=== PATIENT | female | born 1985 | race Caucasian/White ===

== ENCOUNTER 2019-02-26 12:31 | Emergency (ER) | payer OTHER ==
--- NOTE | 2019-02-26 15:10 | ED ---
Psychiatric Complaint - History Of Current Complaint Chief Complaint: EDPsychosocial Time Seen by Provider: 02/26/19 14:44 - Allergies/Home Medications Allergies/Adverse Reactions: Allergies Allergy/AdvReac Type Severity Reaction Status Date / Time codeine Allergy Hives Verified 02/26/19 12:46 PMH/Surg Hx/FS Hx/Imm Hx Infectious Disease History: No Infectious Disease History: Denies: Traveled Outside the [place] in Last 30 Days Review of Systems Negative: Fever Positive: Anxious. Negative: Other - SI/HI All Other Systems Reviewed And Are Negative: Yes Physical Exam Triage Information Reviewed: Yes Vital Signs On Initial Exam: Initial Vitals Temp Pulse Resp BP Pulse Ox 98.2 F 110 16 145/96 96 02/26/19 12:34 02/26/19 12:34 02/26/19 12:34 02/26/19 12:34 02/26/19 12:34 Vital Signs Reviewed: Yes Diagnostics - Vital Signs Vital Signs Temp Pulse Resp BP Pulse Ox 02/26/19 14:01 98.0 F 96 17 117/82 96 02/26/19 12:34 98.2 F 110 16 145/96 96 - Laboratory Lab Statement: Any lab studies that have been ordered have been reviewed, and results considered in the medical decision making process. Discharge - Discharge Plan Referrals: No Primary Care Phys,NOPCP [Primary Care Provider] - - Attestation Statements Document Initiated by Scribe: Yes Documenting Scribe: Herminia Rose Provider For Whom Scribe is Documenting (Include Credential): Jv Ni MD Scribe Attestation: Herminia Davidson, scribed for Jv Ni MD on 02/26/19 at 1509.
[2019-02-26] MEDS ORDERED: LORazepam INJ* 2 MG/ML 1 ML VIAL IM ONE (15:11)
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
[2019-02-26 15:50] VITALS: BP 112/81
== END 2019-02-26 15:50 | disposition home or self-care (01) ==
LOC: ED 12:31
DX: F43.22 Adjustment disorder with anxiety (principal)
CPT/HCPCS: 96372; 99282; J2060

== ENCOUNTER 2019-02-28 12:50 | Emergency (ER) | payer OTHER ==
--- NOTE | 2019-02-28 13:09 | UC ---
Psychiatric Complaint HPI - History Of Current Complaint Stated Complaint: ANXIETY Time Seen by Provider: 02/28/19 13:01 - Allergies/Home Medications Allergies/Adverse Reactions: Allergies Allergy/AdvReac Type Severity Reaction Status Date / Time codeine Allergy Hives Verified 02/28/19 13:08 PMH/Surg Hx/FS Hx/Imm Hx - Social History Alcohol Use: None Substance Use Type: Other Substance Use Comment - Amount & Last Used: Suboxone and Ativan Smoking Status (MU): Unknown if Ever Smoked Psych Complaint Course/Dx - Course Course Of Treatment: Reference #: [id number] - Differential Dx/Diagnosis Differential Diagnosis/HQI/PQRI: Anxiety, Depression, Suicidal Ideation Discharge - Sign-Out/Discharge Documenting (check all that apply): Patient Departure All imaging exams completed and their final reports reviewed: No Studies - Discharge Plan Condition: Stable Disposition: HOME Patient Education Materials: Anxiety (ED) Referrals: No Primary Care Phys,NOPCP [Primary Care Provider] - - Billing Disposition and Condition Condition: STABLE Disposition: Home
[2019-02-28 13:15] VITALS: BP 156/97
[2019-02-28] MEDS ORDERED: LORazepam TAB(*) 1 MG PO ONE (13:21)
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
--- NOTE | 2019-02-28 14:11 | UC ---
- Progress Note Progress Note: Report from receptionist secretary that patient had made a statement that she wanted to hurt herself during registration process. I went into room with triage nurse for a brief evaluation. Patient denied suicidal or homicidal ideation to myself and the triage nurse. Patient was tearful but able to demonstrate good judgement and reason, without hallucinations, abnormal affect or abnormal behaviors during the initial screening examination. Course/Dx - Diagnoses Provider Diagnoses: Anxiety Discharge - Sign-Out/Discharge Documenting (check all that apply): Patient Departure All imaging exams completed and their final reports reviewed: No Studies - Discharge Plan Condition: Fair Disposition: HOME Prescriptions: Gabapentin [Neurontin] 600 mg PO TID #30 capsule Patient Education Materials: Anxiety (ED) Referrals: No Primary Care Phys,NOPCP [Primary Care Provider] - [facility],. [Z.[employer], APPLICATION, OTHER] - Additional Instructions: Recommend follow up with [facility] Also recommend following up with [facility] If you have any symptoms of wanting to harm yourself or your feel unsafe, go to the ER Neurontin refill sent in - Billing Disposition and Condition Condition: FAIR Disposition: Home
== END 2019-02-28 13:36 | disposition home or self-care (01) ==
LOC: UCEAST 12:50
DX: F41.8 Other specified anxiety disorders (principal)
CPT/HCPCS: 93005; 99212; A9270-GY; G0463

== ENCOUNTER 2019-03-01 11:41 | Inpatient (IN) | payer OTHER ==
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
[2019-03-01] MEDS ORDERED: LORazepam TAB(*) 1 MG PO ONE ×3 (12:23→17:24)
[2019-03-01] MEDS ORDERED: Nicotine Inhaler* 10 MG AMP INH PRN (12:42)
[2019-03-01] MEDS ORDERED: Mouth Piece, Nicotine* 1 EACH CARTRIDGE INH PRN (12:48)
[2019-03-01 12:58] LABS: ABS Basophils 0 10^3/ul (0-0.2); ABS Eosinophils 0 10^3/ul (0-0.6); ABS Lymphocytes 1.4 10^3/ul (1.0-4.8); ABS Monocytes 0.5 10^3/ul (0-0.8); ABS Neutrophils 3.5 10^3/ul (1.5-7.7); ABS Nucleated RBC 0 10^3/ul; Eosinophil % 0.5 %; Hematocrit 38 % (33-41); Hemoglobin 12.8 g/dL (12.0-16.0); Lymphocyte % 26.4 %; Mean Corpuscular HGB Conc 34 g/dL (31-36); Mean Corpuscular Hemoglobin 31 pg (27-31); Mean Corpuscular Volume 93 fL (80-97); Mean Platelet Volume 7.7 fL (7.4-10.4); Nucleated Red Blood Cells % 0.1; Platelet Count 420 10^3/uL (150-450); Red Blood Count 4.11 10^6 /uL (3.70-4.87); Red Cell Distribution Width 12 % (10.5-15); White Blood Count 5.5 10^3/uL (3.5-10.8)
[2019-03-01 13:32] LABS: ALT 15 U/L (7-52); AST 15 U/L (13-39); Albumin 4.4 g/dL (3.2-5.2); Albumin/Globulin Ratio 1.7 (1-3); Alkaline Phosphatase 54 U/L (34-104); Anion Gap 9 mmol/L (2-11); Blood Urea Nitrogen 15 mg/dL (6-24); CO2 Carbon Dioxide 21 mmol/L (22-32); Calcium 8.9 mg/dL (8.6-10.3); Chloride 110 mmol/L (101-111); EGFR African American 105.8 (>60); EGFR Non-African American 87.4 (>60); Globulin 2.6 g/dL (2-4); Glucose 117 mg/dL (70-100); Potassium 3.8 mmol/L (3.5-5.0); Sodium 140 mmol/L (135-145)
[2019-03-01 13:38] LABS: HCG Pregnancy < 0.60 mIU/mL
[2019-03-01 13:49] LABS: Acetaminophen 31 mcg/mL; Alcohol < 10 mg/dL (<10); Salicylate < 2.50 mg/dL (<30)
[2019-03-01 14:04] LABS: TSH (Thyroid Stimulating Horm) 1.26 mcIU/mL (0.34-5.60)
[2019-03-01 14:11] LABS: Urine Benzodiazepine Screen None Detected (None Detect); Urine Opiates Screen None Detected (None Detect)
[2019-03-01 14:19] LABS: Urine Appearance Cloudy; Urine Bacteria Absent (Absent); Urine Bilirubin Negative (Negative); Urine Blood Negative (Negative); Urine Color Amber; Urine Glucose Negative (Negative); Urine Ketones Trace (Negative); Urine Nitrite Negative (Negative); Urine Protein Negative (Negative); Urine Red Blood Cell Absent (Absent); Urine Squamous Epithelial Cell Present (Absent); Urine Urobilinogen Negative (Negative); Urine White Blood Cell 3+(>20/hpf) (Absent)
[2019-03-01] MEDS ORDERED: LORazepam TAB(*) 1 MG ONE (17:25)
[2019-03-01] MEDS ORDERED: Al Hydrox/Mg Hydrox/Simet LIQ* 30 ML UDC PO PRN (18:10)
[2019-03-01] MEDS ORDERED: Acetaminophen TAB* 325 MG PO PRN (18:10)
--- NOTE | 2019-03-01 18:36 | PN ---
ED Flex Patient Progress Note Date of Service: 03/01/19 Suboxone 8mg/2mg TID continued- verified dose provider and supply via [facility] [employer] Vital Signs Temp Pulse Resp BP Pulse Ox 98.6 F 92 16 132/92 98 03/01/19 17:51 03/01/19 17:51 03/01/19 17:51 03/01/19 17:51 03/01/19 17:51 Lab Results - Entire Visit 03/01/19 03/01/19 03/01/19 13:44 13:44 12:49 WBC RBC Hgb Hct MCV MCH MCHC RDW Plt Count MPV Neut % (Auto) Lymph % (Auto) [place] % (Auto) Eos % (Auto) Baso % (Auto) Absolute Neuts (auto) Absolute Lymphs (auto) Absolute Monos (auto) Absolute Eos (auto) Absolute Basos (auto) Absolute Nucleated RBC Nucleated RBC % Sodium 140 Potassium 3.8 Chloride 110 Carbon Dioxide 21 L Anion Gap 9 BUN 15 Creatinine 0.75 Est GFR ( Amer) 105.8 Est GFR (Non-Af Amer) 87.4 BUN/Creatinine Ratio 20.0 Glucose 117 H Calcium 8.9 Total Bilirubin 0.30 AST 15 ALT 15 Alkaline Phosphatase 54 Total Protein 7.0 Albumin 4.4 Globulin 2.6 Albumin/Globulin Ratio 1.7 TSH 1.26 Beta HCG, Quant < 0.60 Urine Color Sofie Urine Appearance Cloudy Urine pH 5.0 Ur Specific [place] 1.030 Urine Protein Negative Urine Ketones Trace A Urine Blood Negative Urine Nitrate Negative Urine Bilirubin Negative Urine Urobilinogen Negative Ur Leukocyte Esterase 3+ A Urine WBC (Auto) 3+(>20/hpf) A Urine RBC (Auto) Absent Ur Squamous Epith Cells Present A Urine Bacteria Absent Urine Glucose Negative Urine Ascorbic Acid * A Salicylates < 2.50 Urine Opiates Screen None detected Acetaminophen 31 Ur Barbiturates Screen None detected Ur Phencyclidine Scrn None detected Ur Amphetamines Screen None detected U Benzodiazepines Scrn None detected Urine Cocaine Screen Presumptive positive A U Cannabinoids Screen None detected Serum Alcohol < 10 03/01/19 12:49 WBC 5.5 RBC 4.11 Hgb 12.8 Hct 38 MCV 93 MCH 31 MCHC 34 RDW 12 Plt Count 420 MPV 7.7 Neut % (Auto) 64.2 Lymph % (Auto) 26.4 [place] % (Auto) 8.4 Eos % (Auto) 0.5 Baso % (Auto) 0.5 Absolute Neuts (auto) 3.5 Absolute Lymphs (auto) 1.4 Absolute Monos (auto) 0.5 Absolute Eos (auto) 0 Absolute Basos (auto) 0 Absolute Nucleated RBC 0 Nucleated RBC % 0.1 Sodium Potassium Chloride Carbon Dioxide Anion Gap BUN Creatinine Est GFR ( Amer) Est GFR (Non-Af Amer) BUN/Creatinine Ratio Glucose Calcium Total Bilirubin AST ALT Alkaline Phosphatase Total Protein Albumin Globulin Albumin/Globulin Ratio TSH Beta HCG, Quant Urine Color Urine Appearance Urine pH Ur Specific [place] Urine Protein Urine Ketones Urine Blood Urine Nitrate Urine Bilirubin Urine Urobilinogen Ur Leukocyte Esterase Urine WBC (Auto) Urine RBC (Auto) Ur Squamous Epith Cells Urine Bacteria Urine Glucose Urine Ascorbic Acid Salicylates Urine Opiates Screen Acetaminophen Ur Barbiturates Screen Ur Phencyclidine Scrn Ur Amphetamines Screen U Benzodiazepines Scrn Urine Cocaine Screen U Cannabinoids Screen Serum Alcohol
[2019-03-01] MEDS: Gabapentin CAP(*) 300 MG PO SCH ×2 (18:45→23:27)
[2019-03-01] MEDS: Buprenorp/Nalox 8-2 MG FILM 1 EACH SL FILM SCH ×2 (18:45→23:25)
[2019-03-01] MEDS: levETIRAcetam TAB* 500 MG PO SCH (20:59)
[2019-03-01] MEDS: Topiramate TAB(*) 100 MG PO SCH (20:59)
[2019-03-02] MEDS: FLUoxetine CAP* 20 MG PO SCH (07:47)
[2019-03-02] MEDS: Vitamin THERAPEUTIC TAB PO SCH (07:47)
[2019-03-02] MEDS: ARIPiprazole TAB* 15 MG PO SCH (07:48)
[2019-03-02] MEDS: levETIRAcetam TAB* 500 MG PO SCH ×2 (07:48→20:41)
[2019-03-02] MEDS: Topiramate TAB(*) 100 MG PO SCH ×2 (07:48→20:40)
[2019-03-02] MEDS: Buprenorp/Nalox 8-2 MG FILM 1 EACH SL FILM SCH ×3 (07:48→19:12)
[2019-03-02] MEDS: Gabapentin CAP(*) 300 MG PO SCH (07:48)
[2019-03-02 07:54] LABS: HDL Cholesterol 35.6 mg/dL
[2019-03-02] MEDS ORDERED: LORazepam TAB(*) 1 MG PO ONE (10:40)
[2019-03-02] MEDS ORDERED: LORazepam TAB(*) 1 MG ONE (10:41)
[2019-03-02] MEDS: Gabapentin CAP(*) 400 MG PO SCH ×2 (14:04→20:41)
[2019-03-02] MEDS: LORazepam TAB(*) 1 MG PO PRN (17:00)
[2019-03-02] MEDS: Zolpidem TAB* 10 MG PO PRN (20:40)
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
[2019-03-03] MEDS: LORazepam TAB(*) 1 MG PO PRN ×3 (07:24→20:44)
[2019-03-03] MEDS: Buprenorp/Nalox 8-2 MG FILM 1 EACH SL FILM SCH ×3 (07:25→18:01)
[2019-03-03] MEDS: levETIRAcetam TAB* 500 MG PO SCH ×2 (08:23→20:01)
[2019-03-03] MEDS: Gabapentin CAP(*) 400 MG PO SCH ×3 (08:23→20:01)
[2019-03-03] MEDS: ARIPiprazole TAB* 15 MG PO SCH (08:23)
[2019-03-03] MEDS: FLUoxetine CAP* 20 MG PO SCH (08:23)
[2019-03-03] MEDS: Topiramate TAB(*) 100 MG PO SCH ×2 (08:24→20:00)
[2019-03-03] MEDS: Vitamin THERAPEUTIC TAB PO SCH (08:24)
[2019-03-03] MEDS: hydrOXYzine HCL TAB* 50 MG PO PRN ×2 (10:46→17:32)
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
[2019-03-03] MEDS: Zolpidem TAB* 10 MG PO PRN (20:02)
[2019-03-04] MEDS: Buprenorp/Nalox 8-2 MG FILM 1 EACH SL FILM SCH ×3 (07:40→18:04)
[2019-03-04] MEDS: LORazepam TAB(*) 1 MG PO PRN ×3 (07:40→20:03)
[2019-03-04] MEDS: FLUoxetine CAP* 20 MG PO SCH (08:35)
[2019-03-04] MEDS: Topiramate TAB(*) 100 MG PO SCH ×2 (08:35→20:03)
[2019-03-04] MEDS: Gabapentin CAP(*) 400 MG PO SCH ×3 (08:35→20:04)
[2019-03-04] MEDS: levETIRAcetam TAB* 500 MG PO SCH ×2 (08:36→20:04)
[2019-03-04] MEDS: Vitamin THERAPEUTIC TAB PO SCH (08:36)
[2019-03-04] MEDS: ARIPiprazole TAB* 15 MG PO SCH (08:36)
[2019-03-04] MEDS: hydrOXYzine HCL TAB* 50 MG PO PRN ×2 (10:40→18:03)
--- NOTE | 2019-03-04 19:47 | PN ---
Subjective - Subjective Date of Service: 03/04/19 Subjective: Alexia endorses anger and disappointment for relapsing on crack cocaine. She expresses concerns that she may not be discharged in time tomorrow to make her 1 :00PM outpatient group at 1:00PM at [facility] in [place], [place]. She avidly denies SI/ HI and contracts for safety. She endorses high anxiety related to noise level in the unit. She appears to minimize the circumstances that led to her admission , reports that she has reconciled with her boyfriend since admission. Per staff , she has been seclusive to her room and peripherally engaged in programming. Objective - General Observations Appearance: Well Groomed Appears Stated Age: Yes Stature: WNL Posture: WNL Eye Contact: Average Behavior/Activity: WNL - Interaction Observations Attitude Towards Examiner: Manipulative Stated Mood: Dysphoric, Anxious Speech Pattern/Tone: Clear, Appropriate Thought Process: Coherent Perception: WNL Thought Content: WNL Hallucination Type: None Delusion Type: None - Cognitive Function Orientation: A&O x 4 Level of Consciousness: Alert Cognition: WNL Estimated Intelligence: Normal Insight: Difficulty Acknowledging Presence of Psyciatric Problems Ability to Make Reasonable Decisions: Mildly Impaired - Medication Compliance Cooperative with Inpatient Medication Regimen: Yes - Group Participation Participates in Group Activities: No Assessment - Assessment Merits Inpatient Hospitalization: Consolidate Improvements, For Discharge Planning Clinical Impression: Poorly insightful, focused on discharge, current crisis seems to be mediated by borderline personality traits (sensitivity to perceived abandonment, anger, acting out, rejection of help). Plan - Plan Treatment Plan: Name: ALEXIA CORREA Birthdate: 1985 [id number] Medications: Current Medications Acetaminophen (Tylenol Tab*) 650 mg PO Q4H PRN PRN Reason: PAIN or TEMP > 101 F Last Admin: 03/02/19 20:40 Dose: 650 mg Al Hydrox/Mg Hydrox/Simethicone (Maalox Plus*) 30 ml PO Q4H PRN PRN Reason: INDIGESTION Aripiprazole (Abilify Tab*) 15 mg PO DAILY REPLACED BY [facility] Last Admin: 03/04/19 08:36 Dose: 15 mg Buprenorphine/Naloxone (Suboxone 8 Mg-2 Mg Sl Film) 1 each SL FILM 0700,1200, 1900 REPLACED BY [facility] Last Admin: 03/04/19 18:04 Dose: 1 each Device (Nicotine Mouth Piece*) 1 each INH .USE W/ CARTRIDGE PRN PRN Reason: WITHDRAWAL - NICOTINE Fluoxetine HCl (Prozac Cap*) 60 mg PO DAILY REPLACED BY [facility] Last Admin: 03/04/19 08:35 Dose: 60 mg Gabapentin (Neurontin Cap(*)) 800 mg PO TID REPLACED BY [facility] Last Admin: 03/04/19 13:51 Dose: 800 mg Hydroxyzine HCl (Atarax Tab*) 50 mg PO BID PRN PRN Reason: ANXIETY/AGITATION Last Admin: 03/04/19 18:03 Dose: 50 mg Levetiracetam (Keppra Tab*) 500 mg PO BID REPLACED BY [facility] Last Admin: 03/04/19 08:36 Dose: 500 mg Lorazepam (Ativan Tab(*)) 1 mg PO Q6H PRN PRN Reason: ANXIETY Last Admin: 03/04/19 13:51 Dose: 1 mg Multivitamins (Theragran Tab*) 1 tab PO DAILY REPLACED BY [facility] Last Admin: 03/04/19 08:36 Dose: 1 tab Nicotine (Nicotine Inhaler*) 10 mg INH Q2H PRN PRN Reason: CRAVING Topiramate (Topamax(*)) 100 mg PO BID REPLACED BY [facility] Last Admin: 03/04/19 08:35 Dose: 100 mg Zolpidem Tartrate (Ambien Tab*) 10 mg PO BEDTIME PRN PRN Reason: INSOMNIA Last Admin: 03/03/19 20:02 Dose: 10 mg - Discharge Plan Discharge Plan: Drug/Alcohol Rehab Outpatient Program: [facility]
[2019-03-04] MEDS: Zolpidem TAB* 10 MG PO PRN (20:02)
[2019-03-05] MEDS: LORazepam TAB(*) 1 MG PO PRN (07:20)
[2019-03-05] MEDS: Buprenorp/Nalox 8-2 MG FILM 1 EACH SL FILM SCH ×2 (07:20→11:03)
[2019-03-05 08:03] VITALS: BP 110/79
[2019-03-05] MEDS: FLUoxetine CAP* 20 MG PO SCH (08:13)
[2019-03-05] MEDS: ARIPiprazole TAB* 15 MG PO SCH (08:13)
[2019-03-05] MEDS: levETIRAcetam TAB* 500 MG PO SCH (08:13)
[2019-03-05] MEDS: Vitamin THERAPEUTIC TAB PO SCH (08:14)
[2019-03-05] MEDS: Gabapentin CAP(*) 400 MG PO SCH (08:14)
[2019-03-05] MEDS: Topiramate TAB(*) 100 MG PO SCH (08:14)
[2019-03-05] MEDS: hydrOXYzine HCL TAB* 50 MG PO PRN (09:21)
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
== END 2019-03-05 11:39 | disposition home or self-care (01) | DRG 773 ==
LOC: ED 11:41 → BSU 15:43
PROVIDERS: ADMIT Psychiatry & Neurology Psychiatry; ATTEND Psychiatry & Neurology Psychiatry
DX: F14.14 Cocaine abuse with cocaine-induced mood disorder (principal); R45.851 Suicidal ideations; F11.14 Opioid abuse with opioid-induced mood disorder; F60.3 Borderline personality disorder
CPT/HCPCS: 36415; 80053; 80061; 80307; 80320; 80329; 81003; 81015; 83036; 84443; 84702; 85025; 87077; 87086; 99222; 99231; 99238; 99284; A9270-GY; G0480

== ENCOUNTER 2021-08-23 11:56 | Inpatient (IN) ==
[2021-08-23 14:11] LABS: Urine Appearance Cloudy; Urine Bilirubin Negative (Negative); Urine Blood Negative (Negative); Urine Color Yellow; Urine Glucose Negative (Negative); Urine Ketones Trace (Negative); Urine Nitrite Negative (Negative); Urine Protein Negative (Negative); Urine Specific Gravity 1.017 (1.002-1.030); Urine Urobilinogen Negative (Negative)
[2021-08-23 14:22] LABS: Urine Benzodiazepine Screen None Detected (None Detect); Urine Cannabinoids Screen None Detected (None Detect); Urine Opiates Screen None Detected (None Detect)
[2021-08-23 14:28] LABS: ABS Lymphocytes 1.2 10^3/ul (1.0-4.8); ABS Monocytes 0.4 10^3/ul (0-0.8); ABS Neutrophils 6.8 10^3/ul (1.5-7.7); Eosinophil % 0.3 %; Hematocrit 38 % (35-47); Hemoglobin 13.4 g/dL (12.0-16.0); Lymphocyte % 14.5 %; Mean Corpuscular HGB Conc 35 g/dL (31-36); Mean Corpuscular Hemoglobin 32 pg (27-31); Mean Corpuscular Volume 90 fL (80-97); Mean Platelet Volume 7.8 fL (7.4-10.4); Platelet Count 345 10^3/uL (150-450); Red Blood Count 4.24 10^6 /uL (3.70-4.87); Red Cell Distribution Width 13 % (10-15); White Blood Count 8.5 10^3/uL (3.5-10.8)
[2021-08-23 15:03] LABS: ALT 14 U/L (7-52); AST 14 U/L (13-39); Albumin 4.6 g/dL (3.2-5.2); Albumin/Globulin Ratio 1.6 (1-3); Alkaline Phosphatase 55 U/L (35-149); Anion Gap 9 mmol/L (2-11); Blood Urea Nitrogen 12 mg/dL (6-24); CO2 Carbon Dioxide 23 mmol/L (22-32); Chloride 105 mmol/L (101-111); Globulin 2.9 g/dL (2-4); Glucose 98 mg/dL (70-100); Potassium 4.3 mmol/L (3.5-5.0); Sodium 137 mmol/L (135-145); Total Protein 7.5 g/dL (6.4-8.9)
[2021-08-23] MEDS ORDERED: Al Hydrox/Mg Hydrox/Simet LIQ 30 ML UDC PO PRN (15:04)
[2021-08-23] MEDS ORDERED: Nicotine GUM 2MG FRUIT FLAVOR PO PRN (15:04)
[2021-08-23 15:09] LABS: HCG Pregnancy 0.77 mIU/mL
[2021-08-23 15:13] LABS: Alcohol, S < 13 mg/dL (<13); Salicylate < 2.50 mg/dL (<30)
[2021-08-23 15:25] LABS: Acetaminophen < 15 mcg/mL
[2021-08-23 15:26] LABS: TSH Ultra Thyroid Stim Horm 2.09 mcIU/mL (0.34-5.60)
[2021-08-23 16:01] LABS: Rapid COVID-19 Molecular Undetected (Undetected)
[2021-08-23] MEDS: Buprenorp/Nalox 8-2 MG FILM SL FILM SCH (21:16)
[2021-08-24] MEDS: Buprenorp/Nalox 8-2 MG FILM SL FILM SCH ×3 (07:27→16:29)
[2021-08-24] MEDS ORDERED: Buprenorp/Nalox 8-2 MG FILM SL FILM SCH (10:00)
[2021-08-25] MEDS: Buprenorp/Nalox 8-2 MG FILM SL FILM SCH ×3 (07:31→17:26)
[2021-08-26] MEDS: Buprenorp/Nalox 8-2 MG FILM SL FILM SCH ×3 (07:24→18:07)
[2021-08-26] MEDS: Vitamin THERAPEUTIC TAB PO SCH (07:25)
[2021-08-26 07:44] LABS: HDL Cholesterol 40.9 mg/dL
[2021-08-26] MEDS ORDERED: Flu vaccine *QUAD* 2021-22* 0.5 ML SYRINGE IM ONE (09:00)
[2021-08-26] MEDS: Butalb/Acetamin/Caff TAB 325-50-40MG PO PRN ×2 (11:32→18:43)
[2021-08-27] MEDS: Buprenorp/Nalox 8-2 MG FILM SL FILM SCH ×3 (07:40→17:50)
[2021-08-27] MEDS: Butalb/Acetamin/Caff TAB 325-50-40MG PO PRN ×3 (07:40→21:34)
[2021-08-27] MEDS: Vitamin THERAPEUTIC TAB PO SCH (07:41)
[2021-08-28] MEDS: Buprenorp/Nalox 8-2 MG FILM SL FILM SCH ×2 (07:31→11:37)
[2021-08-28] MEDS: Vitamin THERAPEUTIC TAB PO SCH (07:32)
[2021-08-28] MEDS: Butalb/Acetamin/Caff TAB 325-50-40MG PO PRN (07:32)
[2021-08-28 08:04] VITALS: BP 114/68
== END 2021-08-28 12:30 | disposition home or self-care (01) | DRG 753 ==
LOC: ED 11:56 → BSU 20:20
PROVIDERS: ADMIT Psychiatry & Neurology Psychiatry; ATTEND Psychiatry & Neurology Psychiatry

== ENCOUNTER 2022-08-04 15:04 | Inpatient (IN) ==
[2022-08-04 16:30] LABS: ABS Eosinophils 0.1 10^3/ul (0-0.6); ABS Lymphocytes 2.3 10^3/ul (1.0-4.8); ABS Monocytes 0.6 10^3/ul (0-0.8); ABS Neutrophils 4.6 10^3/ul (1.5-7.7); Eosinophil % 1.3 %; Hematocrit 40 % (35-47); Hemoglobin 13.3 g/dL (12.0-16.0); Lymphocyte % 30.1 %; Mean Corpuscular HGB Conc 33 g/dL (31-36); Mean Corpuscular Hemoglobin 31 pg (27-31); Mean Corpuscular Volume 94 fL (80-97); Mean Platelet Volume 7.5 fL (7.4-10.4); Nucleated Red Blood Cells % 0.1; Platelet Count 378 10^3/uL (150-450); Red Blood Count 4.25 10^6 /uL (3.70-4.87); Red Cell Distribution Width 12 % (10-15); White Blood Count 7.5 10^3/uL (3.5-10.8)
[2022-08-04 16:55] LABS: Urine Appearance Cloudy; Urine Bilirubin Negative (Negative); Urine Blood 3+ (Negative); Urine Color Yellow; Urine Glucose Negative (Negative); Urine Ketones Negative (Negative); Urine Nitrite Negative (Negative); Urine Protein Negative (Negative); Urine Specific Gravity 1.008 (1.002-1.030); Urine Urobilinogen Negative (Negative)
[2022-08-04 16:58] LABS: Urine Benzodiazepine Screen None Detected (None Detect); Urine Cannabinoids Screen None Detected (None Detect); Urine Opiates Screen None Detected (None Detect)
[2022-08-04 17:04] LABS: Urine Bacteria 1+ (Absent); Urine Red Blood Cell 3+(>10/hpf) (Absent); Urine Squamous Epithelial Cell Present (Absent); Urine White Blood Cell 2+(11-20/hpf) (Absent)
[2022-08-04 17:35] LABS: ALT 20 U/L (7-52); AST 17 U/L (13-39); Acetaminophen < 15 mcg/mL; Albumin 4.5 g/dL (3.2-5.2); Albumin/Globulin Ratio 1.8 (1-3); Alcohol, S < 13 mg/dL (<13); Alkaline Phosphatase 56 U/L (35-149); Anion Gap 8 mmol/L (2-11); Blood Urea Nitrogen 11 mg/dL (6-24); CO2 Carbon Dioxide 26 mmol/L (22-32); Calcium 9.2 mg/dL (8.6-10.3); Chloride 102 mmol/L (101-111); Globulin 2.5 g/dL (2-4); Glucose 87 mg/dL (70-100); Salicylate < 2.50 mg/dL (<30); Sodium 136 mmol/L (135-145); eGFR CKD-EPI 97.5 (>60)
[2022-08-04 17:39] LABS: HCG Pregnancy < 0.60 mIU/mL
[2022-08-04 17:48] LABS: TSH Ultra Thyroid Stim Horm 3.98 mcIU/mL (0.34-5.60)
[2022-08-04] MEDS ORDERED: Al Hydrox/Mg Hydrox/Simet LIQ 30 ML UDC PO PRN (18:28)
[2022-08-04] MEDS: Buprenorp/Nalox 8-2 MG FILM SL FILM SCH (20:54)
[2022-08-05] MEDS: Buprenorp/Nalox 8-2 MG FILM SL FILM SCH ×2 (07:43→13:02)
[2022-08-05 12:22] VITALS: BP 123/74
== END 2022-08-05 15:19 | disposition home or self-care (01) | DRG 753 ==
LOC: ED 15:04 → EDHOLD 18:28 → BSU 22:05
PROVIDERS: ADMIT Psychiatry & Neurology Psychiatry; ATTEND Psychiatry & Neurology Psychiatry